=== PATIENT | male | born 1985 | race Caucasian/White ===

== ENCOUNTER 2018-02-09 03:06 | Emergency (ER) | payer BC ==
--- NOTE | 2018-02-09 03:19 | PDOC ---
History of Present Illness - General Chief Complaint: Chest Pain Stated Complaint: CHEST PAIN Time Seen by Provider: 02/09/18 03:18 History Source: Patient - History of Present Illness Initial Comments: 02/09/18 03:31 32 year old male c/o nausea and vomiting one day ago and with chest pain across midchest with pain radiating to left arm since 9pm. denies diaphoresis, dizziness, weakness, headache 02/09/18 04:44 Past History - Past Medical History Allergies/Adverse Reactions: Allergies Allergy/AdvReac Type Severity Reaction Status Date / Time No Known Allergies Allergy Verified 02/09/18 04:45 Home Medications: Ambulatory Orders NK [No Known Home Medication] 02/09/18 - Suicide/Smoking/Psychosocial Hx Smoking History: Current every day smoker Hx Alcohol Use: No Drug/Substance Use Hx: No Substance Use Type: None Hx Substance Use Treatment: No Patient Lives Alone: No Review of Systems - Review of Systems Able to Perform ROS?: Yes Is the patient limited Bel[place]ian proficient: No Constitutional: No: Symptoms Reported, See HPI, Chills, Diaphoresis, Fever, Loss of Appetite, Malaise, Night Sweats, Weakness, Weight Stable, Unintentional Wgt. Loss, Unexplained wgt Loss, Other Cardiac (ROS): Yes: Chest Pain. No: Symptoms Reported, See HPI, Edema, Irregular Heart Rate, Lightheadedness, Palpitations, Syncope, Chest Tightness, Other ABD/GI: Yes: Nausea, Vomiting. No: Symptoms Reported, See HPI, Abdominal Distended, Abd. Pain w/ defecation, Blood Streaked Bowels, Constipated, Diarrhea , Difficulty Swallowing, Poor Appetite, Poor Fluid Intake, Rectal Bleeding, Indigestion, Abdominal cramping, Tarry Stools, Other : No: Symptoms Reported, See HPI, Burning, Dysuria, Discharge, Frequency, Flank Pain, Hematuria, Incontinence, Pain, Urgency, Testicular Mass, Testicular Swelling, Lesions, Testicular Pain, Other Musculoskeletal: No: Symptoms Reported, See HPI, Back Pain, Gout, Joint Pain, Joint Swelling, Muscle Pain, Muscle Weakness, Neck Pain, Joint Stiffness, Other Integumentary: No: Symptoms Reported, See HPI, Bruising, Change in Color, Change in Hair/Nails, Dryness, Erythema, Flushing, Lesions, Lumps, Pallor, Pruritus, Rash, Sweating, Other Neurological: No: Symptoms reported, See HPI, Headache, Numbness, Paresthesia, Pre-Existing Deficit, Seizure, Tingling, Tremors, Weakness, Unsteady Gait, Ataxia, Dizziness, Other *Physical Exam - Vital Signs Last Vital Signs Temp Pulse Resp BP Pulse Ox 98.4 F 89 18 152/67 96 02/09/18 03:27 02/09/18 03:27 02/09/18 03:27 02/09/18 03:27 02/09/18 03:27 - Physical Exam General Appearance: Yes: Appropriately Dressed Respiratory/Chest: positive: Lungs Clear, Normal Breath Sounds. negative: Chest Tender Cardiovascular: positive: Regular Rhythm, Regular Rate Gastrointestinal/Abdominal: positive: Normal Bowel Sounds, Soft Rectal Exam: positive: heme negative stool, normal exam, NL Prostate Extremity: positive: Normal Capillary Refill, Normal Inspection, Normal Range of Motion Integumentary: positive: Normal Color, Dry, Warm Neurologic: positive: Fully Oriented, Alert, Normal Mood/Affect Heart Score/ECG Review - History History: Slightly suspicious - Electrocardiogram EKG: Normal - Age Age: </= 45 - Risk Factors Risk Factors Heart Score: Yes Smoking History Based on the list above the patient has:: 1-2 risk factors - Troponin Troponin: </= normal limit - Score Heart Score - Total: 1 - ECG Intrepretation Rhythm: Regular Rhythm Comment:: 02/09/18 06:05 NSR: 81bpm. nonspecific T wave abnormality ED Treatment Course - LABORATORY CBC & Chemistry Diagram: 02/09/18 03:45 02/09/18 03:44 - ADDITIONAL ORDERS Additional order review: Laboratory Results 02/09/18 02/09/18 03:45 03:44 PT with INR 13.00 H INR 1.15 H D-Dimer 516 H Sodium 138 Potassium 3.6 Chloride 98 Carbon Dioxide 30 Anion Gap 10 BUN 11 Creatinine 1.1 Creat Clearance w eGFR > 60 Random Glucose 96 Calcium 8.3 L Magnesium 2.1 Total Bilirubin 0.6 AST 19 ALT 33 Alkaline Phosphatase 61 Creatine Kinase 105 Troponin I < 0.02 Total Protein 7.3 Albumin 4.1 02/09/18 03:45 RBC 5.13 MCV 87.8 MCHC 35.8 RDW 13.2 MPV 7.4 L Neutrophils % 68.3 Lymphocytes % 16.2 Monocytes % 12.9 H Eosinophils % 2.3 Basophils % 0.3 - RADIOLOGY Radiology Studies Ordered: Category Date Time Status CHEST CTA [CT] Stat CT Scan 02/09/18 04:29 Taken CHEST PA & LAT [RAD] Stat Radiology 02/09/18 03:19 Taken - Medications Given in the ED: ED Medications Discontinued Medications Generic Name Dose Route Start Last Admin Trade Name Freq PRN Reason Stop Dose Admin Aspirin 162 mg 02/09/18 03:30 02/09/18 03:49 Asa - PO 02/09/18 03:31 162 mg ONCE ONE Administration Progress Note - Progress Note Progress Note: chest pain P: CBC CMP Cardiac enzyme aspirin chest xray Medical Decision Making - Medical Decision Making 02/09/18 06:09 patient reports pain relief. CTA chest negative for PE. thymus gland nodule discussed with patient. patient will follow up with pmd. will d/c home. *DC/Admit/Observation/Transfer Diagnosis at time of Disposition: Chest pain Qualifiers: Chest pain type: unspecified Qualified Code(s): R07.9 - Chest pain, unspecified - Discharge Dispostion Disposition: HOME - Referrals - Patient Instructions Printed Discharge Instructions: DI for Atypical Chest Pain Additional Instructions: follow up with your doctor as soon as possible. return to the ER if symptoms worsen - Post Discharge Activity Forms/Work/School Notes: Back to Work
[2018-02-09 03:28] VITALS: TEMP 98.4; BMI 37.1
[2018-02-09] MEDS ORDERED: ASPIRIN 81 MG CHEWABLE TABLETS PO ONE (03:30)
[2018-02-09 03:52] LABS: BASO % 0.3 % (0-2.0); EOS % 2.3 % (0-4.5); HEMATOCRIT 45.1 % (35.4-49); HEMOGLOBIN 16.1 GM/dL (11.7-16.9); LYMPH % 16.2 % (8-40); MCH 31.4 pg (25.7-33.7); MCHC 35.8 g/dl (32.0-35.9); MEAN CELL VOLUME 87.8 fl (80-96); MEAN PLT VOLUME 7.4 fl (7.5-11.1); MONO % 12.9 % (3.8-10.2); NEUT % 68.3 % (42.8-82.8); RBC 5.13 M/mm3 (4.00-5.60); RDW 13.2 % (11.9-15.9); WHITE BLOOD COUNT 8.7 K/mm3 (4.0-10.0)
[2018-02-09 04:12] LABS: INR 1.15 (0.82-1.09)
[2018-02-09 04:18] LABS: ALBUMIN 4.1 g/dl (3.4-5.0); ANION GAP 10 (8-16); BILIRUBIN,TOTAL 0.6 mg/dL (0.2-1.0); BLOOD UREA NITROGEN 11 mg/dL (7-18); CALCIUM 8.3 mg/dL (8.5-10.1); CHLORIDE 98 mmol/L (98-107); CO2 30 mmol/L (21-32); CREATININE 1.1 mg/dL (0.7-1.3); GLUCOSE,RANDOM 96 mg/dL (74-106); MAGNESIUM 2.1 mg/dL (1.8-2.4); POTASSIUM 3.6 mmol/L (3.5-5.1); SGOT/AST 19 U/L (15-37); SGPT/ALT 33 U/L (12-78); SODIUM 138 mmol/L (136-145); TOT PROT 7.3 g/dl (6.4-8.2)
[2018-02-09 04:20] LABS: ALK PHOS 61 U/L (45-117)
--- NOTE | 2018-02-09 04:23 | PDOC ---
*Physical Exam - Vital Signs Last Vital Signs Temp Pulse Resp BP Pulse Ox 98.4 F 89 18 152/67 96 02/09/18 03:27 02/09/18 03:27 02/09/18 03:27 02/09/18 03:27 02/09/18 03:27 ED Treatment Course - LABORATORY CBC & Chemistry Diagram: 02/09/18 03:45 02/09/18 03:44 - ADDITIONAL ORDERS Additional order review: Laboratory Results 02/09/18 02/09/18 03:45 03:44 PT with INR 13.00 H INR 1.15 H D-Dimer 516 H Sodium 138 Potassium 3.6 Chloride 98 Carbon Dioxide 30 Anion Gap 10 BUN 11 Creatinine 1.1 Creat Clearance w eGFR > 60 Random Glucose 96 Calcium 8.3 L Magnesium 2.1 Total Bilirubin 0.6 AST 19 ALT 33 Alkaline Phosphatase 61 Creatine Kinase 105 Troponin I < 0.02 Total Protein 7.3 Albumin 4.1 - Medications Given in the ED: ED Medications Discontinued Medications Generic Name Dose Route Start Last Admin Trade Name Magali PRN Reason Stop Dose Admin Aspirin 162 mg 02/09/18 03:30 02/09/18 03:49 Asa - PO 02/09/18 03:31 162 mg ONCE ONE Administration Medical Decision Making - Medical Decision Making 02/09/18 04:22 agree with care from MARY Do *DC/Admit/Observation/Transfer Diagnosis at time of Disposition: Chest pain - Referrals - Patient Instructions - Post Discharge Activity
[2018-02-09 05:11] LABS: PLATELET COUNT 177 K/MM3 (134-434)
[2018-02-09 05:33] LABS: PLATELET ESTIMATE ADEQUATE
[2018-02-09 06:22] VITALS: BP 119/75; PULSE 66
--- NOTE | 2018-02-09 16:38 | EKG ---
Test Reason : Blood Pressure : / mmHG Vent. Rate : 081 BPM Atrial Rate : 081 BPM P-R Int : 170 ms QRS Dur : 092 ms QT Int : 358 ms P-R-T Axes : 035 063 027 degrees QTc Int : 415 ms POOR DATA QUALITY, INTERPRETATION MAY BE ADVERSELY AFFECTED NORMAL SINUS RHYTHM NONSPECIFIC T WAVE ABNORMALITY ABNORMAL ECG NO PREVIOUS ECGS AVAILABLE Confirmed by SHERRON HUMPHRIES MD ([id number]) on 02/09/2018 4:38:21 PM Referred By: Confirmed By:SHERRON HUMPHRIES MD
== END 2018-02-09 06:22 | disposition home or self-care (01) ==
LOC: JER 03:06
DX: R07.9 Chest pain, unspecified (principal)
CPT/HCPCS: 36415; 71046-TC-FY; 71275-TC; 80053; 82550; 83735; 84484; 85025; 85379; 85610; 93005; 93010; 99282-25